=== PATIENT | female | born 1985 | race Caucasian/White ===

== ENCOUNTER 2016-07-03 15:43 | Inpatient (IN) | payer OTHER ==
--- NOTE | ~2016-07-03 | DS ---
Unit #: [id number] #: [id number] Patient: PABLO MENDEZ [id number] [address] [address] [id number] I MR#: [id number] NAME: PABLO MENDEZ ROOM: [facility] Age: 31 Sex: F Admission Date: 07/03/2016 : 1985 Discharge Date: Attending Physician: Jeanna Ortega M.D. Primary Care Physician: No Primary Care Physician DISCHARGE SUMMARY DISCHARGE DIAGNOSES 1. Left forearm abscess, status post incision and drainage and debridement. 2. Intravenous drug abuse. 3. History of depression. 4. History of seizures with mild protein malnutrition. 5. Metabolic acidosis. 6. Transaminitis, most likely secondary to heroin abuse. 7. History of depression. CONSULTATION Dr. Kumar. PROCEDURE Patient had debridement of the left forearm abscess. ALLERGIES Sulfa. DISCHARGE MEDICATIONS 1. Viibryd 40 mg p.o. daily. 2. Risperdal 2 mg p.o. daily. 3. Nicotine transdermal, 21 mg daily. 4. Klonopin 0.5 mg p.o. b.i.d. 5. Necon, one tablet p.o. daily. 6. Doxycycline 100 mg p.o. b.i.d. for ten days. HOSPITALIZATION COURSE 31-year-old admitted because of left forearm abscess. Left forearm abscess secondary to intravenous drug abuse: Patient seen by surgeon. Patient had I and D. Patient was started on IV vancomycin and Unasyn. Cultures are growing Gram-positive cocci. Patient does have history of MRSA. Patient will be discharged on doxycycline. Please note that patient has sulfa allergy so I couldn't give Bactrim and also she has history of seizures so Zyvox is contraindicated. Patient will see surgeon in one week time if change of antibiotic is needed. I suggested her to come back to ER if her swelling or erythema gets worse. Discharge home with home health. Follow with family physician in one week time. Dressing changes as per surgeon. Unit #: [id number] #: [id number] Patient: PABLO MENDEZ Dictated by... Hunter Raya TD: 07/05/2016 11:51 JOB #: [id number] DISCHARGE SUMMARY Page 1 of 1 X Jeanna Ortega MD DISCHARGE SUMMARY
--- NOTE | ~2016-07-03 | CR132 ---
[facility] A Service of [facility] & [facility] RADIOLOGY TEXT RESULTS PATIENT: PABLO MENDEZ LOCATION: C3A 317-01 : [birth year] UNIT #: [id number] AGE: [address]: Jeanna Ortega MD SEX: F ORDER DR: [id number] [facility] [address] [facility]. [place], [place] [address] [id number] E MR#: [id number] Acc #: [id number] NAME: PABLO MENDEZ : 1985 SEX: F STUDY DATE/TIME: 07/03/2016 15:40 UNIT: [facility] ROOM: STUDY DESCRIPTION: CR Forearm 2 View Lt Attending Physician: Susi Rivera M.D. Ordering Physician: Ssui Rivera M.D. Primary Care Physician: No Primary Care Physician MEDICAL IMAGING REPORT This report is preliminary unless electronic signature is present EXAM Left forearm series 07/03/2016 HISTORY Redness. 1 week duration. Redness and pain on medial side of the ankle, redness, abscess, pain on forearm. AP and lateral radiographs of the left forearm are presented. FINDINGS No fracture or malalignment. No bony destructive process seen. Extensive subcutaneous fat stranding and haziness along the ulnar aspect of the distal upper arm and throughout the forearm more pronounced in its proximal two-thirds. Similar subcutaneous fat stranding and haziness though less severe along the radial aspect of the mid forearm. Localized cutaneous abnormality on the dorsal aspect of the mid forearm measuring approximately 4.5 cm x 1.1 cm. This may represent site of abscess described in history. There is no subcutaneous air and no soft tissue defect is seen. Along the distal aspect of this structure, seen on lateral view, there is a 2-3 mm faint radiodensity which is nonspecific in appearance. It could simply represent a small skin lesion made more conspicuous by the underlying abnormality. Possibility of a small radiodense subcutaneous foreign body is not excluded. On the lateral view it is approximately 2-3 mm deep to the skin surface. Dictated by... Art Chavez M.D. THIS IS AN ELECTRONICALLY VERIFIED REPORT Art Chavez M.D. at 07/04/2016 3:05 PM Heaven TD: 07/03/2016 18:43 [facility]. [facility] A Service of [facility] & [facility] RADIOLOGY TEXT RESULTS PATIENT: PABLO MENDEZ LOCATION: [facility] 317-01 : [birth year] UNIT #: [id number] AGE: [address]: Jeanna Ortega MD SEX: F ORDER DR: TIFFANY #: [id number] MEDICAL IMAGING REPORT Page 1 of 1 COPY
--- NOTE | ~2016-07-03 | HP ---
Unit #: [id number] #: [id number] Patient: PABLO MENDEZ [id number] [address] [place], [place] [address] [id number] I MR#: [id number] NAME: PABLO MENDEZ ROOM: 91274 Age: 31 Sex: F Admission Date: 07/03/2016 : 1985 Attending Physician: Jeffrey Zavaleta M.D. Primary Care Physician: Primary Care Physician No HISTORY AND PHYSICAL CHIEF COMPLAINT Abscess times 2 on the left arm. HISTORY OF PRESENT ILLNESS The patient is a 31-year-old female with history of IV drug abuse, depression and seizures, presented to the emergency room with the abscess on the left forearm. The patient stated that it started as a boil and has gradually worsened to the point that she cannot take it anymore. The patient has had this abscess for 11 days and patient was waiting for it to resolve on its own. The patient has multiple boils in other places on the left wrist. The patient states that she does not know if anybody injected any IV drug abuse. The patient is positive for the amphetamines on the urine toxicology. The patient was found to have a potassium of 2.7. The patient is being admitted for the above reasons. PAST MEDICAL HISTORY 1. History of depression. 2. Seizures. PAST SURGICAL HISTORY Appendectomy. HOME MEDICATIONS 1. She is on controls. 2. Multivitamins. ALLERGIES Sulfa. SOCIAL HISTORY She smokes occasionally. Denies alcohol. Patient denies IV drugs. FAMILY HISTORY Per patient, aunt had a brain aneurysm. REVIEW OF SYSTEMS A 14-point review of systems performed and only pertinent positive findings as described above, remaining are negative. PHYSICAL EXAMINATION VITAL SIGNS: Temperature 98, pulse 90, respiratory rate 22, blood pressure 101/73, saturating 100% at room air. GENERAL: Patient is lying on the bed not in acute distress. HEENT: Atraumatic, normocephalic. Pupils equal, round, and reactive to Unit #: [id number] #: [id number] Patient: PABLO MENDEZ light and accommodation. Extraocular movements are intact. NECK: Supple. LUNGS: Decreased air entry at the bases. HEART: Regular rate and rhythm. ABDOMEN: Soft, positive bowel sounds. EXTREMITIES: The patient has a swelling with necrosis of the skin associated with tenderness and surrounding erythema of the left arm. The patient has a boil on the left also. NEUROLOGIC: Alert, awake, oriented. Patient is in crying mode. DIAGNOSTIC STUDIES LABORATORY: Glucose 106, BUN 14, creatinine 0.9, sodium 132, potassium 2.7, chloride 93, bicarbonate 25, calcium 9.1, total protein 8.6, AST 17, ALT 68. Lactic acid 1.2. WBC 10, hemoglobin 12.4, hematocrit 37.3, platelets 261. Urine toxicology screen positive for amphetamines. UA shows trace leukocyte esterase. IMAGING: X-ray of the left ankle shows no traumatic factors or malalignment, ankle joint mortise appears intact. Soft tissue swelling medial malleolar region and anterior aspect of ankle without soft tissue defect. ASSESSMENT AND PLAN 1. Left arm abscess. 2. IV drug abuse. 3. Hypokalemia. PLAN 1. Admit patient as inpatient. 2. Patient will have IV antibiotics with a history of MRSA in the past with vancomycin and Unasyn. 3. Replace the potassium per protocol. 4. Will have LSA consult for the I and D. 5. Will check CT of the arm to rule out fasciitis and to rule out gas under the tissue. 6. Continue with DVT prophylaxis. 7. Further recommendations will follow. Dictated by Hunter Miller TD: 07/03/2016 20:08 JOB #: [id number] Unit #: [id number] #: [id number] Patient: PABLO MENDEZ HISTORY AND PHYSICAL Page 1 of 1 X X HISTORY AND PHYSICAL
--- NOTE | ~2016-07-03 | CO ---
Unit #: [id number] #: [id number] Patient: PABLO MENDEZ [id number] [address] [place], [place] [address] [id number] Sandi MR#: [id number] NAME: PABLO MENDEZ ROOM: 317 Age: 31 Sex: F Admission Date: 07/03/2016 : 1985 Attending Physician: Jeanna Ortega M.D. Primary Care Physician: Primary Care Physician No Consultation Date: 07/04/2016 CONSULTATION REPORT HISTORY OF PRESENT ILLNESS Ms. Mendez is a 31-year-old white female, IV drug abuse. There is a large abscess with necrotic center on her left arm. There is a smaller abscess on the left arm also on the hand. This is on the forearm area. It has been there for at least 10 days to 2 weeks. This patient is highly sedated at present time. I was not able to explain much to her as well as I could also not talked to her about review of systems or any other problems. PAST MEDICAL HISTORY It appears that she has had appendectomy, depression, seizure disorder. She has also had a psychiatric history. ALLERGIES She is allergic to sulfa. MEDICATIONS She is not on any medications at home except for control pills, last menstrual cycle was 2 weeks ago according to the nurse. SOCIAL HISTORY She is a smoker. No alcohol use however. She does use drugs as noted. PHYSICAL EXAMINATION VITAL SIGNS: Stable. Blood pressure 110/70, respirations 20, pulse 90, temperature 98. ENT: Clear. There appears to be no jaundice. CHEST: Good respirations; however, the patient again sedated and is difficult to examine. No gross cardiac arrhythmias. ABDOMEN: Soft. No peritoneal signs. The abscess in question is largest in the forearm on the left side is about 3 to 4 cm with a large necrotic eschar in the center. IMPRESSION This area needs to be debrided. Risks have been explained to the patient and she understands. Dictated by... Anjum Berrios M.D. JOSE ANTONIO/yony TD: 07/05/2016 01:01 Unit #: [id number] #: [id number] Patient: PABLO MENDEZ JOB #: [id number] CONSULTATION REPORT Page 1 of 1 X Anjum Berrios MD CONSULTATION REPORT
--- NOTE | ~2016-07-03 | CR20 ---
[facility] of [facility] RADIOLOGY TEXT RESULTS PATIENT: PABLO MENDEZ LOCATION: C3A 317-01 : [birth year] UNIT #: [id number] AGE: [address]: Jeanna Ortega MD SEX: F ORDER DR: [id number] [facility] [address] [facility]. [place], [place] [address] [id number] E MR#: [id number] Acc #: [id number] NAME: PABLO MENDEZ : 1985 SEX: F STUDY DATE/TIME: 07/03/2016 15:36 UNIT: JOSE ROOM: STUDY DESCRIPTION: CR Ankle Min 3 Views Lt Attending Physician: Susi Rivera M.D. Ordering Physician: Susi Rivera M.D. Primary Care Physician: No Primary Care Physician MEDICAL IMAGING REPORT This report is preliminary unless electronic signature is present EXAM Left ankle series 07/03/2016. HISTORY Redness and pain on medial side of ankle. Redness, abscess, pain on forearm. FINDINGS AP lateral and oblique radiographs of the left ankle are presented. No traumatic fracture or malalignment. The ankle mortise joint appears intact. Soft tissue swelling, medial malleolar region and anterior aspect of ankle, without soft tissue defect, subcutaneous air, or radiodense foreign body. Dictated by... Art Chavez M.D. THIS IS AN ELECTRONICALLY VERIFIED REPORT Art Chavez M.D. at 07/04/2016 3:05 PM MAME/mar TD: 07/03/2016 17:17 JOB #: [id number] MEDICAL IMAGING REPORT Page 1 of 1 COPY
--- NOTE | ~2016-07-03 | OR ---
Unit #: [id number] #: [id number] Patient: PABLO MENDEZ [id number] [address] [address] [id number] Sandi MR#: [id number] NAME: PABLO MENDEZ ROOM: [facility] Date of Procedure: 07/04/2016 Admission Date: 07/03/2016 Surgeon: Oliver Taylor III, M.D. : 1985 Attending Physician: Jeanna Ortega M.D. OPERATIVE REPORT PREOPERATIVE DIAGNOSIS Left forearm abscess. POSTOPERATIVE DIAGNOSIS Left forearm abscess. PROCEDURE PERFORMED Incision and drainage of left forearm abscess. EMERGENCY COMMUNICATIONS OFFICER None. ANESTHESIA General endotracheal tube anesthesia. SPECIMEN Cultures sent to microbiology. COMPLICATIONS None apparent. INDICATIONS FOR PROCEDURE This is a 31-year-old lady, who presumably has been using IV drugs and has a very large abscess in the left forearm. She is right-handed. She also has 2 small satellite lesions that were subcentimeter in size. DESCRIPTION OF PROCEDURE After consent was obtained, the patient was brought to the operating room and placed in the supine position. General anesthetic was administered. Her left arm was prepped and draped in standard surgical fashion. In the medial portion of her left mid forearm, there was a 7 cm abscess that was huge and pointing with a tough leathery necrotic surface. I incised the middle portion of the abscess and drained a large purulent pocket. Cultures were sent to microbiology. I then excised all the eschar back to healthy viable tissue. I achieved good hemostasis and I packed the wound with Betadine and normal saline soaked Kerlix gauze. I then unroofed the 2 small subcentimeter abscesses and there was very little purulent material into those. A dry dressing was placed over those. The patient tolerated the procedure without any problems and returned to recovery room in stable condition. Unit #: [id number] #: [id number] Patient: PABLO MENDEZ Dictated by... Oliver Taylor III, M.D. VCL/yony TD: 07/05/2016 07:59 JOB #: [id number] OPERATIVE REPORT Page 1 of 1 X Oliver Taylor III, MD PROCEDURE OPERATIVE NOTE
[2016-07-03 14:50] LABS: BASOPHIL% 0.3 % (0-2.5); EOSINOPHIL# 0.2 X10e3 (0-0.7); EOSINOPHIL% 1.9 % (0.0-7.0); HEMATOCRIT 37.3 % (35.0-45.0); HEMOGLOBIN 12.4 gm/dL (12.0-16.0); LYMPHOCYTE# 1.9 X10e3 (1.0-3.5); LYMPHOCYTE% 18.5 % (17.0-45.0); MEAN CELL VOLUME 87.6 FL (83-96); MEAN CORPUSCULAR HEMOGLOBIN 29.1 PG (28-34); MEAN CORPUSCULAR HGB CONC 33.2 g/dL (30-36); MEAN PLATELET VOLUME 8.5 FL (6.5-11.5); MONOCYTE# 0.8 X10e3 (0-1.0); MONOCYTE% 8.3 % (3.0-12.0); NEUTROPHIL# 7.1 X10e3 (1.5-7.1); PLATELET COUNT 261 X10e3 (140-420); RED BLOOD COUNT 4.26 X10e (3.90-5.30); RED CELL DISTRIBUTION WIDTH 12.3 % (11.0-15.5)
[2016-07-03 14:51] LABS: DIFF IND NO
[2016-07-03 15:30] LABS: ALBUMIN SERUM 4.2 g/dL (3.5-5.0); BILIRUBIN, DIRECT 0.1 mg/dL (0.0-0.2); BILIRUBIN,INDIRECT 0.3 mg/dL (0.0-0.9); BILIRUBIN,TOTAL 0.4 mg/dL (0.2-2.0); BUN/CREATININE RATIO 15.55; CALCIUM SERUM 9.1 mg/dL (8.4-10.2); CREATININE SERUM 0.9 mg/dL (0.6-1.4); GLOM FILT RATE Estimated 85.9 mL/min (>60); PROTEIN TOTAL SERUM 8.6 g/dL (6.0-8.3)
[2016-07-03 15:35] LABS: POTASSIUM 2.7 mmol/L (3.5-5.1)
[~2016-07-03 15:43] MED LIST: ACETAMINOPHEN PO; ADVIL200 M1 PO; AMITRYPTYLINE PO; ATIVAN PO; AUGMENTIN PO; BACTROBAN22 GM TP; BCP; BISACODYL10 MG/SUPP PR; CEPHALEXIN500 M1 PO; EFFEXOR37.5 MG PO; ELIMITE60 GM TOP; FLEXERIL10 MG PO; IBUPROFEN800 MG PO; KLONOPIN1 MG PO; LORTAB 5/500 TA1 TA1 PO; NAPROSYN500 MG PO; NECON; NECON1 EACH PO; ORTHO TRI-7 DAYS X PO; ORUDIS75 M1 DOB; ORUDIS75 M1 PO; PAIN RELIEF325 MG PO; PRILOSEC PO; PROZAC; PROZAC PO; STOOL SOFTENER100 M1 PO; TRAZODONE HCL100 MG PO; [UNRECOGNIZED DRUG - OTHER] PO
[2016-07-03 15:44] LABS: URINE SOURCE CLEAN CATCH
[2016-07-03 15:57] LABS: URINE APPEARANCE CLEAR; URINE BILIRUBIN NEG (NEG); URINE BLOOD 1+ (NEG); URINE COLOR DK YELLOW; URINE GLUCOSE NEG (NEG); URINE KETONE NEG (NEG); URINE LEUKOCYTE ESTERASE TRACE (NEG); URINE NITRATE NEG (NEG); URINE PH 5.5 (5-8); URINE PROTEIN NEG (NEG); URINE SPECIFIC GRAVITY 1.007 (1.003-1.035); URINE UROBILINOGEN 0.2 MG/DL (NEG)
[2016-07-03 16:02] LABS: CULTURE INDICATED? YES; URBCS1 AUWI 0-2 /[HPF] (0-2); URINE BACTERIA AUWI 1+ (NEGATIVE); URINE SQUAMOUS EPITHELIAL CELL FEW /[HPF]
[2016-07-03 16:32] LABS: AMPHETAMINE POS (NEG); BARBITURATES NEG (NEG); BENZODIAZEPINES NEG (NEG); COCAINE NEG (NEG); MARIJUANA NEG (NEG); OPIATES NEG (NEG); TRICYCLIC ANTIDEPRESSANTS NEG (NEG); U METHADONE NEG (NEG)
[2016-07-03] MEDS ORDERED: KLONOPIN0.5 MG PO (16:56)
[2016-07-03] MEDS ORDERED: VIIBRYD40 MG PO (16:58)
[2016-07-03] MEDS ORDERED: NECON 0.5-35-21 EACH PO (17:00)
[2016-07-03] MEDS ORDERED: RISPERDAL2 MG PO (17:01)
[2016-07-04 09:53] LABS: BUN/CREATININE RATIO 11.66; CREATININE SERUM 0.6 mg/dL (0.6-1.4); GLOM FILT RATE Estimated 122.3 mL/min (>60); POTASSIUM 4.4 mmol/L (3.5-5.1)
[2016-07-04 13:39] LABS: BASOPHIL% 0.2 % (0-2.5); EOSINOPHIL# 0.2 X10e3 (0-0.7); EOSINOPHIL% 2.8 % (0.0-7.0); HEMATOCRIT 36.6 % (35.0-45.0); HEMOGLOBIN 11.7 gm/dL (12.0-16.0); LYMPHOCYTE# 1.3 X10e3 (1.0-3.5); LYMPHOCYTE% 16.2 % (17.0-45.0); MEAN CORPUSCULAR HGB CONC 32.1 g/dL (30-36); MEAN PLATELET VOLUME 8.5 FL (6.5-11.5); MONOCYTE# 0.8 X10e3 (0-1.0); MONOCYTE% 9.7 % (3.0-12.0); NEUTROPHIL# 5.8 X10e3 (1.5-7.1); NEUTROPHIL% 71.1 % (40-75); PLATELET COUNT 224 X10e3 (140-420); RED BLOOD COUNT 4.04 X10e (3.90-5.30); RED CELL DISTRIBUTION WIDTH 12.3 % (11.0-15.5); WHITE BLOOD COUNT 8.1 X10e3 (4.0-10.5)
[2016-07-04 13:41] LABS: DIFF IND NO; MEAN CELL VOLUME 90.6 FL (83-96)
[2016-07-05 05:25] LABS: HEMATOCRIT 33.7 % (35.0-45.0); MEAN CELL VOLUME 89.6 FL (83-96); MEAN CORPUSCULAR HEMOGLOBIN 29.1 PG (28-34); MEAN CORPUSCULAR HGB CONC 32.5 g/dL (30-36); MEAN PLATELET VOLUME 8.9 FL (6.5-11.5); RED BLOOD COUNT 3.76 X10e (3.90-5.30); RED CELL DISTRIBUTION WIDTH 12.7 % (11.0-15.5); WHITE BLOOD COUNT 5.1 X10e3 (4.0-10.5)
[2016-07-05 05:57] LABS: ALBUMIN SERUM 2.7 g/dL (3.5-5.0); BILIRUBIN,TOTAL 0.3 mg/dL (0.2-2.0); BUN/CREATININE RATIO 11.42; CREATININE SERUM 0.7 mg/dL (0.6-1.4); GLOM FILT RATE Estimated 116.3 mL/min (>60); POTASSIUM 3.8 mmol/L (3.5-5.1); PROTEIN TOTAL SERUM 6.1 g/dL (6.0-8.3)
[2016-07-05] MEDS ORDERED: NICOTINE PATCH1 EACH TD (11:40)
[2016-07-05] MEDS ORDERED: DOXYCYCLINE HY100 M3 PO (11:40)
== END 2016-07-05 15:14 | disposition home health service (06) | DRG 580 ==
LOC: CED 15:43 → CEDOF 18:50 → C3A PCU 20:50
PROVIDERS: Emergency Medicine; Internal Medicine; Student in an Organized Health Care Education/Training Program; Surgery
PROC: 0J9H0ZZ Drainage of Left Lower Arm Subcutaneous Tissue and Fascia, Open Approach (ICD-10-PCS; principal; 2016-07-04 10:30)
DX: L02.414 Cutaneous abscess of left upper limb (principal); E87.2 Acidosis; E44.1 Mild protein-calorie malnutrition; F32.9 Major depressive disorder, single episode, unspecified; Z88.2 Allergy status to sulfonamides; E87.6 Hypokalemia; G40.909 Epilepsy, unspecified, not intractable, without status epilepticus; F17.210 Nicotine dependence, cigarettes, uncomplicated; F11.10 Opioid abuse, uncomplicated; R74.0 Nonspecific elevation of levels of transaminase and lactic acid dehydrogenase [LDH]; Z68.21 Body mass index [BMI] 21.0-21.9, adult
CPT/HCPCS: 36415; 73090; 73610; 80048; 80053; 80076; 80307; 81003; 83605; 84132; 84703; 85025; 85027; 87040; 87070; 87075; 87077; 87086; 87205; 94760; 96365; 99285; J0295; J1650; J2250; J2270; J2550; J3010; J3370; J7060